=== PATIENT | female | born 1960 | race Caucasian/White ===

== ENCOUNTER 2020-11-24 13:23 | Emergency (ER) | payer MEDICARE, SELFPAY ==
[2020-11-24] VITALS (8 sets, daily range): BP systolic 151–199; BP diastolic 67–109; PULSE 64–85; RESP 14–21; TEMP 36.4; O2SAT 97–100; BMI 25.6
--- NOTE | 2020-11-24 13:55 | ECG_ITS ---
[facility] Test Date: 2020-11-24 Pat Name: Pippa Orantes Department: Room: Gender: Female Esthetician Permanent Makeup Artist: : 1960 Requested By: Isra Coulter Order Number: [id number] Dubose MD: Hannah Bell M.D. Measurements Intervals [place] Rate: 58 P: 38 MO: 161 QRS: 11 QRSD: 88 T: 41 QT: 416 QTc: 409 Interpretive Statements SINUS BRADYCARDIA Compared to ECG 07/24/2019 02:59:38 Sinus rhythm no longer present Electronically Signed On 11-24-2020 19:59:07 AIRLINE RADIO OPERATOR by Hannah Bell M.D. [id number]
--- NOTE | 2020-11-24 13:55 | XRR_ITS ---
PROCEDURE INFORMATION: Exam: XR Chest, 1 View Exam date and time: 11/24/2020 2:00 PM Age: 59 years old Clinical indication: Cough; Chest pain; Additional info: Left shoulder pain/chest pain TECHNIQUE: Imaging protocol: XR of the chest Views: 1 view. COMPARISON: CR Chest 1 [place] [id number] 07/23/2019 11:45 PM FINDINGS: Lungs: Unremarkable. No consolidation. Pleural space: Unremarkable. No pleural effusion. No pneumothorax. Heart/Mediastinum: Unremarkable. No cardiomegaly. Bones/joints: Unremarkable. XR/XR chest 1V portable [id number] IMPRESSION: No acute findings.
--- NOTE | 2020-11-24 13:55 | ED_ITS ---
HPI - Back Pain/Injury General: Chief Complaint: Back Pain/Injury Stated Complaint: LEFT SHOULDER PAIN Time Seen by Provider: 11/24/20 13:48 History of Present Illness: HPI Narrative: Patient is a 59-year-old female with past medical history of depression and chronic left shoulder pain who comes to the ER complaining of left shoulder pain radiating to her chest. She says it is worse with deep breaths and movement. She arrived by ambulance and was given Toradol in route which mildly helped her symptoms. Quality: sharp Associated symptoms: Deny abdominal pain, difficulty walking, fatigue or urinary urgency Review of Systems General: Reports: 10 or more systems reviewed and unremarkable except in HPI and below Const: Denies: fatigue Eyes: Denies: change in vision, blurry vision or eye redness ENMT: Denies: throat pain, swelling of lips/tongue, ear or mastoid pain or nasal congestion Card: Reports: other (left shoulder pain radiating to chest.); Denies: chest pain, palpitations, irregular heart rhythm, edema, dyspnea on exertion or orthopnea Resp: Denies: dyspnea, productive cough or non-productive cough GI: Denies: abdominal pain, diarrhea or GI cramping : Denies: flank pain, difficulty voiding, urinary frequency or urinary urgency Musc: Denies: neck pain, back pain, extremity pain, joint pain, joint redness, limited range of motion or muscle weakness Skin/Breast: Denies: rash, pruritus, erythema, skin pain or skin tenderness Neuro: Denies: headache(s), numbness in extremities, weakness in extremities, sensory changes, difficulty walking, dizziness, confusion or Slurred speech present Psych: Denies: anxiety or depression Endo: Denies: polyuria All/Imm: Denies: urticaria, throat swelling or tongue swelling Physical Exam Const: COMMON NORMALS: no acute distress, average body habitus, patient oriented x3, no limitations, healthy appearing, alert and well nourished GENERAL APPEARANCE: cooperative, comfortable, well kempt and well developed ORIENTATION/CONSCIOUSNESS: Yes awake, Yes oriented to person, Yes oriented to place and Yes oriented to time HENMT: COMMON NORMALS: normocephalic, external ears normal and Normal external nose present HEAD & SCALP: normal to inspection and normocephalic NOSE: Normal external nose present EXTERNAL EAR: Yes external ears normal MOUTH: Normal oral and palatal mucosa present THROAT: posterior oropharynx normal Eye: COMMON NORMALS: Equal, round and reactive pupils present and EOMs intact bilaterally GENERAL EYE: appearance normal, both eyes and all related structures PUPIL: Yes Equal, round and reactive pupils present Neck/C-Spine: COMMON NORMALS: full ROM, no lymphadenopathy, no meningeal signs and no JVD GENERAL: Yes normal visual inspection Lymph: LYMPHATIC: no lymphadenopathy noted Chest: COMMONS NORMALS: normal inspection of the chest and normal palpation of entire chest wall Resp: COMMON NORMALS: normal respiratory effort, No retractions, No use of accessory muscles, clear to auscultation bilaterally and percussion normal EFFORT & INSPECTION: Yes able to speak in complete sentences AUSCULTATION: clear to auscultation bilaterally PERCUSSION: percussion normal Cardio: COMMON NORMALS: no JVD, regular rate, regular rhythm, S1 normal heart sound present, S2 normal heart sound present and Peripheral pulses 2+ throughout RATE: regular rate RHYTHM: regular rhythm HEART SOUNDS: S1 normal heart sound present and S2 normal heart sound present PERIPHERAL PULSES: Peripheral pulses 2+ throughout GI: COMMON NORMALS: Normal to inspection, nondistended, normoactive bowel sounds present, Soft to palpation, non-tender and no masses INSPECTION: Yes normal to inspection PALPATION: Yes Soft to palpation : COMMON NORMALS: Yes no CVA tenderness BLADDER/KIDNEY EXAM: Yes no CVA tenderness Back/Pelvis: COMMON NORMALS: no CVA tenderness, thoracic and lumbar spine normal to inspection, no thoracic nor lumbar tenderness and thoraco-lumbar ROM normal Extremity: COMMON NORMALS: normal to inspection, full ROM, capillary refill normal, no joint enlargement and no pedal edema NARRATIVE EXTREMITY EXAM: Mild tenderness to shoulder muscles and rotator cuff. Ligaments intact. No bruising. Likely mild musculoskeletal pain. GENERAL: Yes normal exam except as noted Neuro: COMMON NORMALS: patient oriented x3, CN's II-XII intact bilaterally, moves all extremities, no focal motor deficits, no sensory deficits noted and gait normal SENSORIUM/ORIENTATION: Yes alert, Yes oriented to person, Yes oriented to place and Yes oriented to time MENINGEAL SIGNS: Yes no meningeal signs Psych: COMMON NORMALS: mental status grossly normal, Normal thought process present, cooperative, normal affect and speech normal APPEARANCE: Yes well kempt ATTITUDE: Yes calm SPEECH: Yes normal speech THOUGHT PROCESS: Normal thought process present Skin: COMMON NORMALS: no rashes or lesions noted GENERAL SKIN EXAM: no rashes or lesions noted Course Vital Signs: Vital signs: Vital Signs Temperature 97.5 F L 11/24/20 13:44 Pulse Rate 85 11/24/20 19:41 Respiratory Rate 17 11/24/20 19:41 Blood Pressure 151/81 11/24/20 19:41 Pulse Oximetry 98 11/24/20 19:41 MDM - Back Pain/Injury MDM Narrative: Medical decision making narrative: After she was nearing discharge for the chest pain she began to discuss depression and medication noncompliance and also follow-up noncompliance. I recommended placing a case management referral to help her get a primary care doctor and outpatient follow- up with a psychiatrist. She was also given clonidine to help control her blood pressure and will be discharged with lisinopril which she says she used to take before she ran out sometime ago. Discussed with her the risks of chronic hypertension of chest pain, heart attack, and stroke and she is aware of that and will take the medication and get refills. She is instructed to return to the ER if she has any worsening symptoms or suicidal thoughts Lab Data: Labs: Lab Results 11/24/20 11/24/20 11/24/20 Range/Units 14:24 14:24 14:24 WBC 4.4 (4.0-10.0) 10^3/ uL RBC 5.10 (4.1-5.3) 10^6/u L Hgb 16.2 H (11.5-15.3) g/dL Hct 48.7 H (37.0-47.0) % MCV 95.5 (81-99) fL MCH 31.8 (28.0-34.0) pg MCHC 33.3 (30.0-36.0) g/dL RDW 12.1 (12.1-15.1) % Plt Count 284 (130-400) 10^3/c mm MPV 11.3 H (7.4-10.4) fL Neut % (Auto) 59.7 % Lymph % (Auto) 28.1 % [place] % (Auto) 6.7 % Eos % (Auto) 3.8 % Baso % (Auto) 1.3 % Neut # (Auto) 2.67 (1.8-7.7) 10^3/u L Lymph # (Auto) 1.3 (0.8-4.8) 10^3/u L [place] # (Auto) 0.3 (0.2-0.9) 10^3/u L Eos # (Auto) 0.2 (0.0-0.8) 10^3/u L Baso # (Auto) 0.1 (0.0-0.1) 10^3/u L Nucleated RBC % (a uto) 0 % Nucleated RBCs # 0.0 /100WBC Sodium 139 (136-145) mmol/L Potassium 4.7 (3.5-5.1) mmol/L Chloride 103 (98-107) mmol/L Carbon Dioxide 26 (22-29) mmol/L Anion Gap 14.7 (5-19) BUN 16 (6-20) mg/dL Creatinine 0.9 (0.5-0.9) mg/dL GFR Calculation 64.1 L (90-130) mL/min Glucose 111 (65-115) mg/dL Calculated Osmolal ity 290 (285-295) mOsm/k g Calcium 9.6 (8.5-10.5) mg/dL Total Bilirubin 0.6 (0.15-1.2) mg/dL AST 18 (0-32) U/L ALT 13 (0-33) U/L Alkaline Phosphata se 76 (35-105) IU/L Troponin T Baselin e 7 (0-10) ng/L Troponin T 120 Min [place] (0-10) ng/L Delta Troponin T (0-10) ABS# Total Protein 6.6 (6.6-8.7) g/dL Albumin 3.9 (3.5-5.2) g/dL Globulin 2.7 (1.3-4.6) g/dL 11/24/20 Range/Units 16:06 WBC (4.0-10.0) 10^3/ uL RBC (4.1-5.3) 10^6/u L Hgb (11.5-15.3) g/dL Hct (37.0-47.0) % MCV (81-99) fL MCH (28.0-34.0) pg MCHC (30.0-36.0) g/dL RDW (12.1-15.1) % Plt Count (130-400) 10^3/c mm MPV (7.4-10.4) fL Neut % (Auto) % Lymph % (Auto) % [place] % (Auto) % Eos % (Auto) % Baso % (Auto) % Neut # (Auto) (1.8-7.7) 10^3/u L Lymph # (Auto) (0.8-4.8) 10^3/u L [place] # (Auto) (0.2-0.9) 10^3/u L Eos # (Auto) (0.0-0.8) 10^3/u L Baso # (Auto) (0.0-0.1) 10^3/u L Nucleated RBC % (a uto) % Nucleated RBCs # /100WBC Sodium (136-145) mmol/L Potassium (3.5-5.1) mmol/L Chloride (98-107) mmol/L Carbon Dioxide (22-29) mmol/L Anion Gap (5-19) BUN (6-20) mg/dL Creatinine (0.5-0.9) mg/dL GFR Calculation (90-130) mL/min Glucose (65-115) mg/dL Calculated Osmolal ity (285-295) mOsm/k g Calcium (8.5-10.5) mg/dL Total Bilirubin (0.15-1.2) mg/dL AST (0-32) U/L ALT (0-33) U/L Alkaline Phosphata se (35-105) IU/L Troponin T Baselin e (0-10) ng/L Troponin T 120 Min [place] 6.24 (0-10) ng/L Delta Troponin T -0.76 L (0-10) ABS# Total Protein (6.6-8.7) g/dL Albumin (3.5-5.2) g/dL Globulin (1.3-4.6) g/dL Discharge Plan Discharge Patient Disposition: Home Clinical Impression: Acute shoulder pain, Depression, History of uncontrolled hypertension, H/O medication noncompliance Condition: Stable Prescriptions: New lisinopril 20 mg tablet 20 mg PO DAILY Qty: 30 RF: 0 No Action Aspir-81 81 mg Tablet,Delayed Release (Dr/Ec) 81 mg PO QAM RF: 0 ibuprofen 200 mg Tablet 800 mg PO PRN RF: 0 Discharge Orders: Discharge ED (Routine); Ordered 11/24/20 Ordered By: Isra Coulter Referrals: SIMA Bates, YARIEL [Primary Care Provider] - Discharge Diet: Advance as tolerated Discharge Activity: Resume usual activity Patient Instructions: Depression (ED), Anxiety (ED) Activity Restrictions/Additional Instructions: You have likely injured your shoulder from lifting heavy rocks at home. Please take Tylenol at home for this and give it a few days. You also have depression. I have placed a case management referral to help you get an appointment with a primary care doctor and a psychiatrist. You must get refills from your primary care doctor for your blood pressure. If you do not your blood pressure will spike and you will be at risk of having a heart attack or a stroke and causing possible early . Return to the ER with worsening symptoms. Also please make sure to follow-up with the psychiatrist as he will help you get your medications straight and get you to feeling better. Return to the ER with any thoughts of hurting yourself Coding Level of Care Code ED Marketing Project Lead for Viktoria Fwconstanza Exam Comprehensive
[2020-11-24 14:42] LABS: Hematocrit 48.7 % (37.0-47.0); Hemoglobin 16.2 g/dL (11.5-15.3); Mean Corpuscular HGB Conc 33.3 g/dL (30.0-36.0); Mean Corpuscular Hemoglobin 31.8 pg (28.0-34.0); Mean Corpuscular Volume 95.5 fL (81-99); Mean Platelet Volume 11.3 fL (7.4-10.4); Nucleated Red Blood Cells % 0 %; Platelet Count 284 10^3/cmm (130-400); Red Cell Distribution Width 12.1 % (12.1-15.1); White Blood Count 4.4 10^3/uL (4.0-10.0)
[2020-11-24 15:14] LABS: Alanine Aminotransferase 13 U/L (0-33); Albumin Level 3.9 g/dL (3.5-5.2); Alkaline Phosphatase 76 IU/L (35-105); Anion Gap 14.7 (5-19); Aspartate Amino Transferase 18 U/L (0-32); Blood Urea Nitrogen 16 mg/dL (6-20); Calcium 9.6 mg/dL (8.5-10.5); Carbon Dioxide 26 mmol/L (22-29); Chloride 103 mmol/L (98-107); Creatinine Clr Calc Pharmacy 58.9275; Globulin 2.7 g/dL (1.3-4.6); Glomerular Filtration Rate 64.1 mL/min (90-130); Glucose 111 mg/dL (65-115); Osmolality Calculated 290 mOsm/kg (285-295); Potassium 4.7 mmol/L (3.5-5.1); Sodium 139 mmol/L (136-145); Total Bilirubin 0.6 mg/dL (0.15-1.2); Total Protein 6.6 g/dL (6.6-8.7)
[2020-11-24 15:18] LABS: Troponin(5th) Baseline 7 ng/L (0-10)
--- NOTE | 2020-11-24 16:17 | PC.PHAR ---
pt states she is suppose to be taking lisinopril 20mg daily but has been out of this medication for 3 months or so
[2020-11-24 16:26] LABS: Basophils # 0.1 10^3/uL (0.0-0.1); Basophils % 1.3 %; Eosinophils # 0.2 10^3/uL (0.0-0.8); Eosinophils % 3.8 %; Lymphocytes # 1.3 10^3/uL (0.8-4.8); Lymphocytes % 28.1 %; Monocytes # 0.3 10^3/uL (0.2-0.9); Monocytes % 6.7 %; Neutrophils # 2.67 10^3/uL (1.8-7.7); Neutrophils % 59.7 %
[2020-11-24 16:55] LABS: Troponin 5 2HR 6.24 ng/L (0-10)
[2020-11-24 16:56] LABS: Troponin 5 2HR Delta -0.76 ABS# (0-10)
[2020-11-24] MEDS: LORazepam 1 mg Tablet PO (16:59)
[2020-11-24] MEDS: cloNIDine 0.1 mg Tablet 0.2 MG PO (18:39)
[2020-11-24] MEDS: hyDROXYzine 25 mg Capsule 50 MG PO (18:50)
--- NOTE | 2020-11-25 10:36 | DCPLANNER ---
environmental services project manager had message to speak with patient about a primary care appointment and follow up at [facility]. environmental services project manager called [phone], case reviewer was unable to speak with patient at this time. A message stated that this number in no longer in service.
== END 2020-11-24 19:41 | disposition home or self-care (01) ==
PROVIDERS: Emergency Provider Family Medicine; PCP Nurse Practitioner Family
DX: M25.512 Pain in left shoulder (principal); F32.9 Major depressive disorder, single episode, unspecified; I10 Essential (primary) hypertension; Z91.14 Patient's other noncompliance with medication regimen; Z79.82 Long term (current) use of aspirin
CPT/HCPCS: 12345; 36415; 71045; 80053; 84484; 85025; 93005; 99283; 99284

== ENCOUNTER 2021-01-11 19:47 | Observation (INO) | payer MEDICARE, SELFPAY ==
[2021-01-11 19:50] VITALS: BP 180/103; PULSE 89; RESP 18; TEMP 36.7; O2SAT 97; BMI 27.4
--- NOTE | 2021-01-11 20:12 | ED_ITS ---
HPI - Psych General: Chief Complaint: Psychiatric Symptoms Stated Complaint: psych eval SI Time Seen by Provider: 01/11/21 20:03 Source: patient Mode of arrival: ambulatory Limitations: no limitations History of Present Illness: HPI Narrative: 60-year-old female who states she has been having suicidal thoughts and depression over the last week to 2 weeks with increased tonight. She states she has no specific plan but states she is feels like she cannot take anymore. Patient is tearful in the room. She denies any worsening improving factors. She states she supposed be on psychiatric medicines but has not been taking any for months. MD complaint: suicidal ideation Associated symptoms: Reports depression and suicidal ideation Review of Systems Const: Denies: fever(s), chills, body aches or change in appetite Eyes: Denies: blurry vision or eye discomfort ENMT: Denies: throat pain or dental pain Card: Denies: chest pain Resp: Denies: dyspnea GI: Denies: abdominal pain, nausea, vomiting or diarrhea : Denies: dysuria Musc: Denies: neck pain or back pain Skin/Breast: Denies: rash Neuro: Denies: headache(s) Psych: Reports: depression and suicidal ideation Chandan/Lymph: Denies: easy bruising All/Imm: Denies: urticaria Physical Exam Const: COMMON NORMALS: no acute distress, patient oriented x3 and healthy appearing HENMT: COMMON NORMALS: normocephalic and atraumatic HEAD & SCALP: normocephalic and atraumatic Eye: COMMON NORMALS: Equal, round and reactive pupils present and EOMs intact bilaterally PUPIL: Yes Equal, round and reactive pupils present Neck/C-Spine: COMMON NORMALS: full ROM and supple Chest: COMMONS NORMALS: normal inspection of the chest and normal palpation of entire chest wall Resp: COMMON NORMALS: normal respiratory effort, No retractions, No use of accessory muscles and clear to auscultation bilaterally AUSCULTATION: clear to auscultation bilaterally Cardio: COMMON NORMALS: regular rate, regular rhythm and No murmurs present (Cardio) RATE: regular rate RHYTHM: regular rhythm GI: COMMON NORMALS: Normal to inspection, nondistended, normoactive bowel sounds present, Soft to palpation, non-tender and no masses PALPATION: Yes Soft to palpation Extremity: COMMON NORMALS: normal to inspection and full ROM Neuro: COMMON NORMALS: patient oriented x3, moves all extremities and no focal motor deficits Psych: COMMON NORMALS: mental status grossly normal, Normal thought process present and cooperative THOUGHT PROCESS: Normal thought process present THOUGHT CONTENT: Yes Suicidality present Skin: COMMON NORMALS: no rashes or lesions noted and no wounds GENERAL SKIN EXAM: no rashes or lesions noted MDM - Psych MDM Narrative: Medical decision making narrative: Patient presents here with suicidal ideations and is voluntarily wanting to be admitted. Patient is stable for admission blood work is all normal. I spoke to Dr. Noel and will admit. Lab Data: Labs: Lab Results 01/11/21 01/11/21 01/11/21 Range/Units 20:11 20:35 20:35 WBC 7.4 (4.0-10.0) 10^3/ uL RBC 4.61 (4.1-5.3) 10^6/u L Hgb 14.7 (11.5-15.3) g/dL Hct 45.5 (37.0-47.0) % MCV 98.7 (81-99) fL MCH 31.9 (28.0-34.0) pg MCHC 32.3 (30.0-36.0) g/dL RDW 12.1 (12.1-15.1) % Plt Count 244 (130-400) 10^3/c mm MPV 11.6 H (7.4-10.4) fL Neut % (Auto) 66.2 % Lymph % (Auto) 26.4 % [place] % (Auto) 4.5 % Eos % (Auto) 1.8 % Baso % (Auto) 0.8 % Neut # (Auto) 4.88 (1.8-7.7) 10^3/u L Lymph # (Auto) 1.9 (0.8-4.8) 10^3/u L [place] # (Auto) 0.3 (0.2-0.9) 10^3/u L Eos # (Auto) 0.1 (0.0-0.8) 10^3/u L Baso # (Auto) 0.1 (0.0-0.1) 10^3/u L Nucleated RBC % (a uto) 0 % Nucleated RBCs # 0.0 /100WBC Sodium 137 (136-145) mmol/L Potassium 4.1 (3.5-5.1) mmol/L Chloride 105 (98-107) mmol/L Carbon Dioxide 24 (22-29) mmol/L Anion Gap 12.1 (5-19) BUN 11 (8-23) mg/dL Creatinine 0.8 (0.5-0.9) mg/dL GFR Calculation 73.2 L (90-130) mL/min Glucose 89 (65-115) mg/dL Calculated Osmolal ity 283 L (285-295) mOsm/k g Calcium 8.6 (8.5-10.5) mg/dL Total Bilirubin 0.3 (0.15-1.2) mg/dL AST 17 (0-32) U/L ALT 12 (0-33) U/L Alkaline Phosphata se 69 (35-105) IU/L Total Protein 6.6 (6.6-8.7) g/dL Albumin 3.8 (3.5-5.2) g/dL Globulin 2.8 (1.3-4.6) g/dL Salicylates < 0.3 L (3-10) mg/dL Urine Opiates Scre en Negative (Negative) ng/mL Acetaminophen < 5.0 L (10-30) ug/mL Ur Barbiturates Sc reen Negative (Negative) ng/mL Ur Phencyclidine S crn Negative (Negative) ng/mL Ur Amphetamines Sc reen Negative (Negative) ng/mL U Benzodiazepines Scrn Negative (Negative) ng/mL Urine Cocaine Scre en Negative (Negative) ng/mL U Marijuana (THC) Screen Negative (Negative) ng/mL Ethyl Alcohol (0-10) mg/dL 01/11/21 Range/Units 20:35 WBC (4.0-10.0) 10^3/ uL RBC (4.1-5.3) 10^6/u L Hgb (11.5-15.3) g/dL Hct (37.0-47.0) % MCV (81-99) fL MCH (28.0-34.0) pg MCHC (30.0-36.0) g/dL RDW (12.1-15.1) % Plt Count (130-400) 10^3/c mm MPV (7.4-10.4) fL Neut % (Auto) % Lymph % (Auto) % [place] % (Auto) % Eos % (Auto) % Baso % (Auto) % Neut # (Auto) (1.8-7.7) 10^3/u L Lymph # (Auto) (0.8-4.8) 10^3/u L [place] # (Auto) (0.2-0.9) 10^3/u L Eos # (Auto) (0.0-0.8) 10^3/u L Baso # (Auto) (0.0-0.1) 10^3/u L Nucleated RBC % (a uto) % Nucleated RBCs # /100WBC Sodium (136-145) mmol/L Potassium (3.5-5.1) mmol/L Chloride (98-107) mmol/L Carbon Dioxide (22-29) mmol/L Anion Gap (5-19) BUN (8-23) mg/dL Creatinine (0.5-0.9) mg/dL GFR Calculation (90-130) mL/min Glucose (65-115) mg/dL Calculated Osmolal ity (285-295) mOsm/k g Calcium (8.5-10.5) mg/dL Total Bilirubin (0.15-1.2) mg/dL AST (0-32) U/L ALT (0-33) U/L Alkaline Phosphata se (35-105) IU/L Total Protein (6.6-8.7) g/dL Albumin (3.5-5.2) g/dL Globulin (1.3-4.6) g/dL Salicylates (3-10) mg/dL Urine Opiates Scre en (Negative) ng/mL Acetaminophen (10-30) ug/mL Ur Barbiturates Sc reen (Negative) ng/mL Ur Phencyclidine S crn (Negative) ng/mL Ur Amphetamines Sc reen (Negative) ng/mL U Benzodiazepines Scrn (Negative) ng/mL Urine Cocaine Scre en (Negative) ng/mL U Marijuana (THC) Screen (Negative) ng/mL Ethyl Alcohol < 10 (0-10) mg/dL Discharge Plan Discharge Patient Disposition: Admitted As Inpatient Admit Provider: Chilo Noel Clinical Impression: Suicidal ideation Condition: Stable Coding Level of Care Code ED Stainless Steel Finisher for Chg Fwd Exam Comprehensive
[2021-01-11] MEDS: LORazepam 2 mg Tablet PO (20:16)
[2021-01-11 20:34] LABS: Amphetamines Screen Urine Negative (Negative); Barbiturates Screen Urine Negative (Negative); Benzodiazepines Screen Urine Negative (Negative); Cocaine Screen Urine Negative (Negative); Opiate Screen Urine Negative (Negative); PCP Screen Urine Negative (Negative); THC Screen Urine Negative (Negative)
[2021-01-11 20:42] LABS: Basophils # 0.1 10^3/uL (0.0-0.1); Basophils % 0.8 %; Eosinophils # 0.1 10^3/uL (0.0-0.8); Eosinophils % 1.8 %; Hematocrit 45.5 % (37.0-47.0); Hemoglobin 14.7 g/dL (11.5-15.3); Lymphocytes # 1.9 10^3/uL (0.8-4.8); Lymphocytes % 26.4 %; Mean Corpuscular HGB Conc 32.3 g/dL (30.0-36.0); Mean Corpuscular Hemoglobin 31.9 pg (28.0-34.0); Mean Corpuscular Volume 98.7 fL (81-99); Mean Platelet Volume 11.6 fL (7.4-10.4); Monocytes # 0.3 10^3/uL (0.2-0.9); Monocytes % 4.5 %; Neutrophils # 4.88 10^3/uL (1.8-7.7); Neutrophils % 66.2 %; Nucleated Red Blood Cells % 0 %; Platelet Count 244 10^3/cmm (130-400); Red Blood Count 4.61 10^6/uL (4.1-5.3); Red Cell Distribution Width 12.1 % (12.1-15.1); White Blood Count 7.4 10^3/uL (4.0-10.0)
[2021-01-11 20:58] LABS: Alanine Aminotransferase 12 U/L (0-33); Albumin Level 3.8 g/dL (3.5-5.2); Alkaline Phosphatase 69 IU/L (35-105); Anion Gap 12.1 (5-19); Aspartate Amino Transferase 17 U/L (0-32); Blood Urea Nitrogen 11 mg/dL (8-23); Calcium 8.6 mg/dL (8.5-10.5); Carbon Dioxide 24 mmol/L (22-29); Chloride 105 mmol/L (98-107); Globulin 2.8 g/dL (1.3-4.6); Glomerular Filtration Rate 73.2 mL/min (90-130); Glucose 89 mg/dL (65-115); Osmolality Calculated 283 mOsm/kg (285-295); Potassium 4.1 mmol/L (3.5-5.1); Sodium 137 mmol/L (136-145); Total Bilirubin 0.3 mg/dL (0.15-1.2); Total Protein 6.6 g/dL (6.6-8.7)
[2021-01-11 21:01] LABS: Acetaminophen < 5.0 ug/mL (10-30); Alcohol Level < 10 mg/dL (0-10); Salicylate < 0.3 mg/dL (3-10)
[2021-01-11 21:50] VITALS: BP 143/86; PULSE 76; RESP 17; O2SAT 97
[2021-01-11 21:58] VITALS: BP 143/86; PULSE 76; RESP 17; TEMP 36.4; O2SAT 97
[2021-01-11 22:23] VITALS: BP 138/86; PULSE 86; RESP 17; TEMP 36.7; O2SAT 93
[2021-01-12 06:37] VITALS: BP 130/82; PULSE 61; RESP 18; TEMP 36.5; O2SAT 99
--- NOTE | 2021-01-12 08:50 | PC.NURSE ---
INFLUENZA VACCINE 1 SINGLE DOSE (0.5 ML) GIVEN IM IN RIGHT DELTOID. PT EDUCATED ON MED GIVEN & PT VERBALIZED UNDERSTANDING. WILL CONT TO MONITOR INJECTION SITE FOR ANY REDNESS, SWELLING, OR IRRITATION. LOT [id number] EXP 05/05/21
[2021-01-12 12:38] VITALS: BP 130/82; PULSE 61; RESP 18; TEMP 36.5; O2SAT 99
--- NOTE | 2021-01-12 12:39 | PM.SDS ---
Short Stay Summary Providers Date of Admit/Discharge: 01/16/21 Attending Provider: Chilo Noel MD Primary Care Provider: YARIEL Khan Chief Complaint: psych eval SI HPI History of Present Illness Pippa Orantes is a 60 year old female who presented to the emergency department with the following report: Chief Complaint: Psychiatric Symptoms Stated Complaint: psych eval SI Time Seen by Provider: 01/11/21 20:03 Source: patient Mode of arrival: ambulatory Limitations: no limitations History of Present Illness: HPI Narrative: 60-year-old female who states she has been having suicidal thoughts and depression over the last week to 2 weeks with increased tonight. She states she has no specific plan but states she is feels like she cannot take anymore. Patient is tearful in the room. She denies any worsening improving factors. She states she supposed be on psychiatric medicines but has not been taking any for months. MD complaint: suicidal ideation Associated symptoms: Reports depression and suicidal ideation. She was admitted to the neuropsychiatric unit for definitive treatment of those issues. This morning however it came to our attention that this admission was likely based on other issues. Yesterday she and her significant other who we also unwittingly admitted were escorted out of [facility] the local homeless jail because he would not leave. They noted that they had nowhere else to go they were not allowed to be there because according to [facility] rules want to leave you cannot return for a year. So the presentation last night was predicated on having no else to go. She is not denying this issue. She has not been on her medication is made no attempts to rectify the situation. We agreed that we would restart her Prozac after discussion of the risks, benefits and alternatives and she understood and agreed to proceed as documented in this note. We also agreed to assist them in getting to a jail which is what they wanted but the closest one that they could be assured entry is in [facility]. She endorses a history of schizophrenia but denies current psychosis and has not been hospital, on medication, or in treatment outpatient for some time. We reviewed her last inpatient stay here and excerpt is included below for some context. And also identified that she is struggling with homelessness for some time. Her significant other struggles heavily with alcohol but she denies alcohol or any other major addictions. Mental status examination: This is an overweight white female with hospital scrubs on with limited grooming and eye contact. No abnormal movements except for mild psychomotor retardation. Mostly cooperative with exam in no acute distress. Speech was decreased rate and volume. Mood described as okay, affect subdued. Thought process organized. Thought content: Patient denied suicidal or homicidal ideation, there were no delusions reported or noted, she denied any auditory or visual hallucinations. Attention and concentration appeared intact and memory was reliable but none were formally tested. She is alert and oriented x3. Insight and judgment are limited and impulse control is fair. Assessment/plan: This is a 60-year-old white female with a long history of mental health issues but with limited recent treatment who presents to the [facility] with her significant other under the guise of suicidality but in reality she was malingering, homeless in need of a place to stay. . Continue current medication. 2. Continue every 15 minute checks for safety. 3. Encourage individual, group and milieu therapies. 4. We will discharge to jail in [facility]. Per her last [facility] inpatient psychiatric evaluation: History of Present Illness Date of Service: Apr 21, 2018 Chief Complaint: Depression HPI: Ms. Orantes is a 57-year-old female who is well known to our behavior health services who was admitted from [facility] ED complaint of depression. As she presents today she appears severely depressed with notable psychomotor retardation difficulty with focus or concentration, depressed mood, anhedonia, hopelessness, intermittent suicidal ideation, and difficulty with memory. Patient reports that since her last hospitalization in October 2017, she has not had a consistent and stable place to live, her sister , she is recently staying with her brother that has not been working out, and she's been off her medications now for several months. She denies any alcohol or any other substance use. Allergies: Coded Allergies: AZITHROMYCIN (Verified Allergy, Unknown, 09/18/08) CEFAZOLIN SODIUM (Verified Allergy, Unknown, 09/18/08) CLARITHROMYCIN (Verified Allergy, Unknown, 09/18/08) ERYTHROMYCIN BASE (Verified Allergy, Unknown, 09/18/08) HYDROMORPHONE (Verified Allergy, Unknown, SEIZURES, 09/18/08) MECLIZINE (Verified Allergy, Unknown, 09/18/08) MEPERIDINE (Verified Allergy, Unknown, SEIZURES, 09/18/08) MORPHINE (Verified Allergy, Unknown, SEIZURES, 09/18/08) QUINOLONES (Verified Allergy, Unknown, 09/18/08) PREDNISONE (Verified Adverse Reaction, Unknown, 09/18/08) SULFONYLUREAS (Verified Adverse Reaction, Unknown, 09/18/08) TRAMADOL (Verified Adverse Reaction, Unknown, 09/18/08) Uncoded Allergies: UNKNOWN ANTIDEPRESSANT (Adverse Reaction, Unknown, 12/18/06) UNKNOWN BP MED (Adverse Reaction, Unknown, 12/18/06) Active Meds: Current Hospital Medications: Medications (Trade) Dose Ordered Sig/Hanh Route PRN Reason Start Time Stop Time Status Last Admin Dose Admin Lorazepam (Ativan Tab) 0.5 mg Q4H PRN PO FOR MILD ANXIETY 04/20/18 19:15 Lorazepam (Ativan Tab) 1 mg Q4H PRN PO FOR MODERATE ANXIETY 04/20/18 19:15 Lorazepam (Ativan Tab) 2 mg Q4H PRN PO FOR SEVERE ANXIETY 04/20/18 19:15 04/20/18 21:48 Lorazepam (Ativan Inj) 2 mg Q4H PRN IM For Severe Aggression 04/20/18 19:15 Haloperidol Lactate (Haldol Inj) 5 mg Q4H PRN IM Severe Aggression 04/20/18 19:15 Diphenhydramine HCl (Benadryl Inj) 50 mg ONCE PRN IV Severe Extrapyramidal Symptoms 04/20/18 19:15 Benztropine Mesylate (Cogentin Tab) 1 mg BID PRN PO Mild Extrapyramidal symptoms 04/20/18 19:15 Benztropine Mesylate (Cogentin Inj) 1 mg ONCE PRN IM Severe Extrapyramidal Symptom 04/20/18 19:15 Acetaminophen (Tylenol Tab) 650 mg Q4H PRN PO FOR MILD PAIN 04/20/18 19:15 Trazodone HCl (Trazodone) 50 mg BEDTIME PRN PO FOR SLEEP 04/20/18 19:15 Nicotine (Nicoderm Patch) 21 mg DAILY PRN TD FOR WITHDRAWAL 04/20/18 19:15 Nicotine Polacrilex (Nicotine Gum) 2 mg Q2H PRN PO Withdrawal 04/20/18 19:15 Haloperidol (Haldol Tab) 5 mg Q4H PRN PO For agitation 04/20/18 19:15 Lorazepam (Ativan Tab) 2 mg Q4H PRN PO FOR AGITATION 04/20/18 19:15 Lisinopril (Prinivil) 5 mg DAILY PO 04/21/18 10:00 Past Medical History Past Medical History: PAST PSYCHIATRIC HISTORY: -Previous diagnosis of major depressive disorder recurrent, anxiety -Last hospitalized on the [facility] 10/20/2017 PAST FAMILY PSYCHIATRIC HISTORY: -Noncontributory SOCIAL HISTORY: -She is currently homeless PAST MEDICAL HISTORY: -Hypertension Home Meds/Allergies Home Medications and Allergies Home Medications Medication Instructions Recorded Confirmed Type aspirin [Aspir-81] 81 mg PO DAILY 01/15/21 01/15/21 History lisinopril 20 mg PO DAILY 01/16/21 01/16/21 History tamsulosin 0.4 mg PO DAILY 01/16/21 01/16/21 History Allergies Allergy/AdvReac Type Severity Reaction Status Date / Time hydromorphone [From Dilaudid] Allergy Mild ADR-Halluci Verified 01/15/21 18:22 nating morphine Allergy Mild ALGY-Anaphy Verified 01/15/21 18:22 laxis Vitals/I&O/Wt Last Vital Signs Temp 97.7 F 01/12/21 12:38 Pulse 61 01/12/21 12:38 Resp 18 01/12/21 12:38 BP 130/82 01/12/21 12:38 Pulse Ox 99 01/12/21 12:38 Weight last 48 hrs Weight 68.039 kg Hospital Course Admission Diagnoses Depression, malingering, history of schizophrenia, Hospital Course Pippa presented to the emergency department endorsing depression, history of schizophrenia and suicidality. She was admitted to the neuropsychiatric unit for definitive treatment of those issues. On the unit however it was discovered that she was malingering along with her significant other secondary to being homeless, not having a place to stay and being removed from the local homeless jail secondary to not having been out of the facility for long enough before attempting to return. We assisted her by restarting her Prozac which she had been off for some time and connected her with a homeless jail to assist in that knee. She was able to contract for safety prior to discharge. During the hospitalization, patient had routine laboratory studies which were within normal limits except for few outliers. Additionally there was a general medical evaluation which was also within normal limits and revealed no new acute processes. Discharge Summary At the time of discharge, patient was absent psychosis or lethality. Mood and anxiety were well managed. Patient endorsed a plan follow-up with the aftercare recommendations of the treatment team. Patient was evaluated and deemed to be absent credible lethality, and had achieved the maximum benefit from an inpatient hospitalization, so was discharged. Diagnoses at Discharge Discharge Diagnosis (1) Depression: Status: Acute (2) Malingering: Status: Acute (3) Homeless: Status: Acute (4) Schizophrenia: Status: Acute (5) Suicidal ideation: Status: Resolved Discharge Plan Discharge Patient Disposition: Home Condition: Stable Prescriptions: New fluoxetine 20 mg Capsule 20 mg PO DAILY 30 Days Qty: 30 RF: 1 No Action aspirin [Aspir-81] 81 mg Tablet,Delayed Release (Dr/Ec) 81 mg PO DAILY RF: 0 lisinopril 20 mg Tablet 20 mg PO DAILY RF: 0 tamsulosin 0.4 mg Capsule 0.4 mg PO DAILY RF: 0 Discharge Orders: Discharge Order (Routine); Ordered 01/12/21 Ordered By: Chilo Noel Referrals: [facility] [Other] ([address] [place] [address] Please follow up for your walk in assessment within 3-5 days of discharge. No call-ahead is necessary, just walk in and be seen. Bring your I.D., social security card or number, and insurance information We accept Medicare, Medicaid, numerous private insurance providers and accept self-pay on a sliding scale for those who qualify. ) [facility] [Other] ([address], [address] [address] ) [facility] [Other] (At discharge you will be sent to [facility] in [place], they will help coordinate housing resources for you. If you are at risk of becoming homeless or currently without a safe, stable place to stay, please call [phone] or visit us at [facility]-[address] [place] [id number]. One of the [facility] service coordinators will meet with you to help identify resources and options that may meet your individual needs. Hours of Operation: Monday: 9am ? 5pm Monday: 9am ? noon and 1pm ? 5pm Monday: 9am ? 5pm : 10am ? 5pm Matt: 9am ? 5pm* *[facility] is closed the first Monday of every month ) [facility] [Outside] SIMA Bates, [employer]KER [Primary Care Provider] - Discharge Diet: Regular Discharge Activity: Resume usual activity Patient Instructions: Fluoxetine (By mouth), Suicide Prevention for Adults (GEN) Attestations Medical Necessity Statement*: Inpatient hospitalization is not medically necessary or the clinically appropriate intervention at this time. We will discharge to home with access to medication and advise to engage in outpatient services. Time Spent in Patient Care*: greater than 30 min Specific Discharge Activities: Specific discharge activities: educating patient, discussing with watch case polisher/social workers/dc planners, documenting/other paperwork and evaluating patient/reviewing data Status at Discharge: Cognitive status at discharge: cognitively intact, Behavioral status at discharge: cooperative, Functional status at discharge: independent ambulation Overall status at discharge: patient is back to baseline Quality Metrics Clinical Quality Measures: During this hospital stay, did patient experience: None Coding Level of Care Code Acute Dairy Manager for Viktoria Fwd Diagnoses Depression F32.9 Malingering Z76.5 Homeless Z59.0 Schizophrenia F20.9 Suicidal ideation R45.851
[2021-01-12] MEDS: fluoxetine 20 mg Capsule PO (12:47)
== END 2021-01-12 14:21 | disposition home or self-care (01) ==
LOC: ER 21:08 → NP 01-12 10:34
PROVIDERS: Admitting Provider Psychiatry & Neurology Psychiatry; Emergency Provider Emergency Medicine; PCP Nurse Practitioner Family; Visit Provider Psychiatry & Neurology Psychiatry
DX: R45.851 Suicidal ideations (principal); F20.9 Schizophrenia, unspecified; Z59.0 Homelessness; Z76.5 Malingerer [conscious simulation]; F32.9 Major depressive disorder, single episode, unspecified
CPT/HCPCS: 36415; 80053; 80306; 80307; 85025; 90471; 90686; 99285; G0378

== ENCOUNTER 2021-01-15 18:12 | Inpatient (IN) | payer MEDICARE, SELFPAY ==
[2021-01-15 18:18] VITALS: BP 172/129; PULSE 76; RESP 16; TEMP 36.9; O2SAT 98; BMI 28.3
[2021-01-15 18:37] VITALS: RESP 15
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
[2021-01-15] MEDS: ziprasidone 20 mg/mL SDV 10 MG IM (19:22)
[2021-01-15] MEDS: haloperidol inj 5 mg/mL INJ 1 mL IM (19:23)
[2021-01-15 19:38] LABS: Add Urine Microscopic? NO
[2021-01-15 19:44] LABS: Basophils % 0.7 %; Eosinophils # 0.1 10^3/uL (0.0-0.8); Hematocrit 48.6 % (37.0-47.0); Hemoglobin 15.7 g/dL (11.5-15.3); Lymphocytes # 2.2 10^3/uL (0.8-4.8); Lymphocytes % 35.4 %; Mean Corpuscular HGB Conc 32.3 g/dL (30.0-36.0); Mean Corpuscular Hemoglobin 31.5 pg (28.0-34.0); Mean Corpuscular Volume 97.6 fL (81-99); Mean Platelet Volume 11.7 fL (7.4-10.4); Monocytes # 0.5 10^3/uL (0.2-0.9); Monocytes % 8.3 %; Neutrophils # 3.35 10^3/uL (1.8-7.7); Neutrophils % 54.4 %; Nucleated Red Blood Cells % 0 %; Platelet Count 276 10^3/cmm (130-400); Red Blood Count 4.98 10^6/uL (4.1-5.3); Red Cell Distribution Width 12.3 % (12.1-15.1); White Blood Count 6.2 10^3/uL (4.0-10.0)
[2021-01-15 19:49] LABS: Bilirubin Urine Neg (Negative); Blood Urine Neg (Negative); Glucose Urine UA Norm (Normal); Ketones Urine Negative (Negative); Leukocyte Esterase Urine Negative (Negative); Nitrate Urine Negative (Negative); Protein Urine Neg (Negative); Specific Gravity, Urine 1.025 (1.005-1.030); Urine Appearance Clear (CLEAR); Urine Color Yellow (Yellow); Urobilinogen Urine 4 mg/dL (Negative); pH Urine 5 (5-7)
[2021-01-15 19:56] LABS: Amphetamines Screen Urine Negative (Negative); Barbiturates Screen Urine Negative (Negative); Benzodiazepines Screen Urine Positive (Negative); Cocaine Screen Urine Negative (Negative); Opiate Screen Urine Negative (Negative); PCP Screen Urine Negative (Negative); THC Screen Urine Negative (Negative)
[2021-01-15 20:01] LABS: Alanine Aminotransferase 17 U/L (0-33); Alkaline Phosphatase 70 IU/L (35-105); Anion Gap 11.9 (5-19); Aspartate Amino Transferase 26 U/L (0-32); Blood Urea Nitrogen 23 mg/dL (8-23); Calcium 8.8 mg/dL (8.5-10.5); Carbon Dioxide 28 mmol/L (22-29); Chloride 103 mmol/L (98-107); Globulin 2.9 g/dL (1.3-4.6); Glomerular Filtration Rate 73.2 mL/min (90-130); Glucose 99 mg/dL (65-115); Osmolality Calculated 292 mOsm/kg (285-295); Potassium 3.9 mmol/L (3.5-5.1); Sodium 139 mmol/L (136-145); Total Bilirubin 0.3 mg/dL (0.15-1.2); Total Protein 6.9 g/dL (6.6-8.7)
[2021-01-15 20:04] LABS: Acetaminophen < 5.0 ug/mL (10-30); Alcohol Level < 10 mg/dL (0-10); Salicylate < 0.3 mg/dL (3-10)
--- NOTE | 2021-01-15 20:51 | CTR_ITS ---
PROCEDURE INFORMATION: Exam: CT Head Without Contrast Exam date and time: 01/15/2021 8:53 PM Age: 60 years old Clinical indication: Altered mental status/memory loss; Confusion or disorientation; Additional info: AMS TECHNIQUE: Imaging protocol: Computed tomography of the head without contrast. Radiation optimization: All CT scans at this facility use at least one of these dose optimization techniques: automated exposure control; mA and/or kV adjustment per patient size (includes targeted exams where dose is matched to clinical indication); or iterative reconstruction. COMPARISON: CT head wo con* [id number] 05/09/2019 9:36 AM RADIATION DOSE METRICS: Total DLP (mGy-cm): 686.11 FINDINGS: Brain: Mild cortical volume loss. Moderate hypodensities in supratentorial periventricular and subcortical white matter, consistent with microangiopathy. No intracranial hemorrhage. New lacunar infarct in the mid right jose, of near CSF density and likely chronic. Cerebral ventricles: No ventriculomegaly. Bones/joints: Unremarkable. No acute fracture. Paranasal sinuses: Visualized sinuses are unremarkable. No fluid levels. Mastoid air cells: Visualized mastoid air cells are well aerated. Vasculature: No hyperdense artery. Soft tissues: Unremarkable. CT/CT head wo con* [id number] IMPRESSION: 1. No acute intracranial abnormality. 2. 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 Radiation Dose CTDIVOL = (mGy): DLP = 686.11 (mGy-cm)
[2021-01-15 21:41] VITALS: BP 157/76; PULSE 63; RESP 16; TEMP 36.8; O2SAT 96
[2021-01-15 21:52] VITALS: BP 131/79; PULSE 68; RESP 18; TEMP 36.7; O2SAT 95
[2021-01-15 22:00] VITALS: BP 131/79; PULSE 68; RESP 18; TEMP 36.7; O2SAT 95
[2021-01-16 06:00] VITALS: BP 168/103; PULSE 88; RESP 17; TEMP 36.8; O2SAT 98
[2021-01-16] MEDS: hyDROXYzine 25 mg Capsule 50 MG PO ×3 (09:05→20:27)
[2021-01-16] MEDS: acetaminophen 325 mg Tablet 650 MG PO (09:05)
[2021-01-16] MEDS: lisinopril 20 mg Tablet PO (09:05)
[2021-01-16] MEDS: tamsulosin 0.4 mg Capsule PO (09:08)
[2021-01-16] MEDS: aspirin 81 mg EC Tablet PO (09:08)
[2021-01-16] MEDS: fluoxetine 20 mg Capsule PO (09:09)
--- NOTE | 2021-01-16 12:09 | PM.NHP ---
Providers/Chief Complaint Admitting Physician: Shiloh Moreau DO Chief Complaint: anxiety HPI NPU History of Present Illness Pippa Orantes is a 60 year old female with history of depression and anxiety and recent discharge from this unit 4 days ago with complaint of depression and suicidal ideation although was quickly discharged secondary to concerns for malingering after she had recently been asked to leave the homeless group home presented to the emergency department after being picked up by her niece in [place] with a complaint of not knowing how she got to [place]. Patient continues to report amnesia for multiple events as well as stating that she does not know today's date or what year it is although patient makes no attempts to think or guess but simply states, I do not know. Patient does not recall how long this is been going on. When asked about her significant other patient seems to recall his name is Dorian but states that she does not know his phone number and does not recall the last time she had spoke to him. She denies any head injury and denies any weakness or numbness in any extremities or any history of stroke or recent strokes. Patient continues to report depressive symptoms but denies any suicidal ideation. She does not recall how long her depressive symptoms have been going on but states that it causes her significant issues. She also reports significant anxiety symptoms and is requesting medication for her anxiety. Patient denies any recent stressors other than stating that she cannot recall recent events. She denies any auditory or visual hallucinations, denies any delusions. Patient states that she does not recall what medications that she is taking or if she has been compliant with her medications. Psychiatric review of systems is otherwise negative. Review of Systems General: Reports: 10 or more systems reviewed and unremarkable except in HPI and below Meds NPU Home Medications Medication Instructions Recorded Confirmed Last Taken Type fluoxetine 20 mg PO DAILY 30 Days #30 cap 01/12/21 01/15/21 Unknown Rx aspirin [Aspir-81] 81 mg PO DAILY 01/15/21 01/15/21 Unknown History lisinopril 20 mg PO DAILY 01/16/21 01/16/21 Unknown History tamsulosin 0.4 mg PO DAILY 01/16/21 01/16/21 Unknown History Allergies Allergy/AdvReac Type Severity Reaction Status Date / Time hydromorphone [From Dilaudid] Allergy Mild ADR-Halluci Verified 01/15/21 18:22 nating morphine Allergy Mild ALGY-Anaphy Verified 01/15/21 18:22 laxis [facility] NPU Other Psychiatric History: Other Psychiatric History: No reported changes since last psychiatric hospitalization at this facility on 01/11/2021 per H&P completed by Dr. Noel Mental Status Exam MSE Comments: Appears stated age, appropriately groomed and dressed, calm, cooperative, sitting on her bed, good eye contact Psychomotor activity is neither increased nor decreased, no agitation Speech is occasionally slow with occasional pauses but otherwise normal rate, volume, spontaneous, clear articulation, not pressured I feel anxious, congruent affect, not labile Alert and oriented to person, place but not to time or situation Memory and concentration is poor, poor effort per interview Intellectual functioning is average at best based on vocabulary, interview Thought process, frequent pauses, delay, linear, no flight of ideas, no looseness of associations Thought content, no delusions, does not appear to be attending to any internal stimuli, no suicidal or homicidal ideation Insight and judgment appear to be fair Vitals/I&O/Wt Last Vital Signs Temp 98.3 F 01/16/21 06:00 Pulse 88 01/16/21 06:00 Resp 17 01/16/21 06:00 BP 168/103 01/16/21 06:00 Pulse Ox 98 01/16/21 06:00 Weight last 48 hrs Weight 70.307 kg Data NPU : 01/15/21 19:28 01/15/21 19:28 A&P Assessment and plan (1) Amnesia memory loss: Status: Acute (2) Depression: Status: Acute Qualifiers: Depression Type: unspecified Qualified Code(s): F32.9 - Major depressive disorder, single episode, unspecified (3) Acute anxiety: Status: Acute (4) Homeless: Status: Acute Additional A&P Information Patient presented to the emergency department with complaint of anxiety, amnesia after being found in [place], couple hours from her previous location with no recollection of how she got there. Patient continues to report depressive symptoms and had recently been discharged from this unit secondary to concerns for malingering after being kicked out of her homeless group home. Patient has past history of schizophrenia although no psychotic symptoms, no disorganization of speech, thoughts or behaviors and no hallucinations or delusions. Patient would benefit from titrating up on antidepressant targeting anxiety and depressive symptoms with continued evaluation. No clear etiology for amnesia, no history of head injury, no known exposures, positive for benzodiazepines on urine drug screen but no other illicit drug use per patient. VOLUNTARY ADMIT to inpatient psychiatry INCREASE to fluoxetine 40 mg daily targeting anxiety and depressive symptoms DISCONTINUE benzodiazepines Plan to minimize any unnecessary use of anticholinergic medications or any other medications that may affect patient's cognition while monitoring Involuntary Hold Information 96 Hour Hold: 96 Hour Involuntary Admission: No Attestations NPU Medical Necessity Statement*: Patient requires psychiatric hospitalization for observation to ensure no suicidal behaviors, medication stabilization, coordination for safe discharge Anticipate hospital stay to exceed 2 midnights Time Spent in Patient Care: Greater than 35 minutes (>than 50% of time spent in counselling and/or direct pt care on unit). Coding Level of Care Code Acute Community Engagement Specialist for Viktoria Bee Diagnoses Amnesia memory loss R41.3 Depression F32.9 Depression Type: unspecified Acute anxiety F41.9 Homeless Z59.0
[2021-01-16 14:00] VITALS: BP 135/78; PULSE 80; RESP 20; TEMP 36.6; O2SAT 95
[2021-01-16] MEDS: trazodone 50 mg Tablet PO (20:27)
[2021-01-16 21:08] VITALS: BP 136/78; PULSE 70; RESP 16; TEMP 36.7; O2SAT 95
[2021-01-17 06:00] VITALS: BP 125/72; PULSE 76; RESP 16; TEMP 36.4; O2SAT 98
[2021-01-17] MEDS: fluoxetine 20 mg Capsule 40 MG PO (08:24)
[2021-01-17] MEDS: lisinopril 20 mg Tablet PO (08:24)
[2021-01-17] MEDS: tamsulosin 0.4 mg Capsule PO (08:24)
[2021-01-17] MEDS: aspirin 81 mg EC Tablet PO (08:24)
--- NOTE | 2021-01-17 10:55 | PM.NPN ---
Subjective NPU Subjective: Interval history: Patient reports significant improvement depressive symptoms, denies any interval suicidal ideation Continues to report intermittent anxiety but reports improved. Denies any interval panic symptoms Denies any interval hallucinations, denies any delusions Continues to report difficulty with memory, states that she does not recall how she got into the hospital States that she is compliant with her medication, denies any medication side effects COLLATERAL: Patient's sister, Nelly, , patient provided written consent. Patient sister states that she had previously worked as a psychiatric nurse for an inpatient facility. She states that she subsequently started having depressive and anxiety symptoms and abusing substances and has been abusing substances for quite some time leading to an unstable living situation in which she has been homeless for a while. She reports concerns because her memory issues have led to her wandering making it difficult for her to stay whenever she has previously been placed into facilities for treatment. Mental Status Exam MSE Comments: Sitting up on her bed, calm, cooperative, good eye contact, appropriately groomed and dressed Psychomotor activity is neither increased nor decreased, no agitation Speech is normal rate and volume, spontaneous, clear articulation, not pressured I feel better, congruent affect, not labile Alert and oriented to person, place but not to time or situation Memory and concentration is poor, poor effort per interview Thought process, linear, no flight of ideas, no looseness of associations Thought content, no delusions, no hallucinations, no suicidal or homicidal ideation Insight and judgment appear to be fair Vitals/I&O/Wt Last Vital Signs Temp 97.6 F 01/17/21 06:00 Pulse 76 01/17/21 06:00 Resp 16 01/17/21 06:00 BP 125/72 01/17/21 06:00 Pulse Ox 98 01/17/21 06:00 Weight last 48 hrs Weight 74.843 kg Weight 70.307 kg Data NPU : 01/15/21 19:28 01/15/21 19:28 A&P Assessment and plan (1) Amnesia memory loss: Status: Acute (2) Acute anxiety: Status: Acute (3) Depression: Status: Acute Qualifiers: Depression Type: unspecified Qualified Code(s): F32.9 - Major depressive disorder, single episode, unspecified Additional A&P Information Continues to report intermittent depressive and anxiety symptoms with some improvement, continues to have memory issues, would likely benefit from residential substance treatment CONTINUE current medication, continue to monitor Coordinate with social media senior associate for post discharge treatment Involuntary Hold Information 96 Hour Hold: 96 Hour Involuntary Admission: No Attestations NPU Medical Necessity Statement*: Continues require psychiatric hospitalization for medication stabilization Coding Level of Care Code Acute Residential Energy Auditor for Viktoria Bee Diagnoses Amnesia memory loss R41.3 Acute anxiety F41.9 Depression F32.9 Depression Type: unspecified
[2021-01-17 13:27] VITALS: BP 106/69; PULSE 76; RESP 18; TEMP 37
[2021-01-17] MEDS: trazodone 50 mg Tablet PO (19:53)
[2021-01-17] MEDS: hyDROXYzine 25 mg Capsule 50 MG PO (19:53)
[2021-01-17 19:54] VITALS: BP 141/87; PULSE 67; RESP 16; TEMP 37.2; O2SAT 97
[2021-01-18 06:00] VITALS: BP 111/58; PULSE 50; RESP 18; TEMP 36.6; O2SAT 95
[2021-01-18] MEDS: tamsulosin 0.4 mg Capsule PO (08:09)
[2021-01-18] MEDS: fluoxetine 20 mg Capsule 40 MG PO (08:09)
[2021-01-18] MEDS: lisinopril 20 mg Tablet PO (08:09)
[2021-01-18] MEDS: aspirin 81 mg EC Tablet PO (08:09)
[2021-01-18] MEDS: hyDROXYzine 25 mg Capsule 50 MG PO (12:15)
--- NOTE | 2021-01-18 12:15 | PC.NURSE ---
PRN VISTARIL 50 MG GIVEN PO PER PT C/O STATED ANXIETY. NO OUTWARD S/S OF ANXIETY NOTED, FLAT AFFECT. PT HAS TO BE REDIRECTED AWAY FROM THE NURSES STATION SEVERAL TIMES.
[2021-01-18 14:00] VITALS: BP 117/74; PULSE 71; RESP 18; TEMP 36.9; O2SAT 97
--- NOTE | 2021-01-18 14:32 | PM.NDC ---
Diagnoses at Discharge Discharge Diagnosis (1) Amnesia memory loss: Status: Acute (2) Acute anxiety: Status: Acute (3) Depression: Status: Acute Qualifiers: Depression Type: unspecified Qualified Code(s): F32.9 - Major depressive disorder, single episode, unspecified Reason for Visit Reason for Visit: anxiety Hospital Course Hospital Course 60-year-old female presents to the emergency department with amnesia of recent events, per collateral information from family, patient has had some episodes of forgetfulness and memory issues as well as wandering behavior despite no history of dementia. Patient was also complaining of acute anxiety as well as depressive symptoms and suicidal ideation. Patient had recently been discharged from this facility with concerns of malingering given that she had been recently kicked out of a homeless fci with her significant other and immediately presented to the emergency department. Patient was reporting depressive symptoms at the time of her admission and her fluoxetine was titrated up to fluoxetine 40 mg daily with good effect and no complaints of any medication side effects. Patient reported some improvement in her cognition stating that she felt like she was thinking more clearly but continued to have some difficulty with recent memory. She reported significant improvement in her depressive symptoms and denied any suicidal ideation or thoughts about self-harm at the time of discharge and did not appear to pose an imminent threat of harm to self or others. Low to moderate risk of harm to self given no current suicidal ideation and no current depressive symptoms although patient's risk may be elevated if she continues to use illicit substances or is noncompliant with her medication medication management follow-up leading to unexpected, impulsive behavior. Risk mitigation included psychiatric hospitalization, medication stabilization, recommendation to abstain from the use of substances and alcohol as well as recommendation to be compliant with her medication and medication management follow-up. Patient was able to communicate her understanding of the need to abstain from the use of substances and alcohol as well as the need to be compliant with her medication medication management follow-up in order to further mitigate her risk of harm to self and others. Involuntary Hold Information 96 Hour Hold: 96 Hour Involuntary Admission: No Mental Status Exam MSE Comments: Sitting in the day room, appropriately groomed and dressed, calm, cooperative, good eye contact Psychomotor activity is neither increased nor decreased, no agitation Speech is normal rate and volume, spontaneous, clear articulation, not pressured Good, congruent affect, smiles appropriately at times during interview, not labile Alert and oriented to person, place but not to time or situation Memory and concentration is poor for recent memory and fair for remote memory per interview Thought process, linear, no flight of ideas, no looseness of associations Thought content, no delusions, no hallucinations, no suicidal or homicidal ideation Insight and judgment appear to be fair Discharge Data Data Completed and Pending: Completed Studies During Hospitalization Category Date Time Status CT head wo con* 7 0450 Stat Cat Scan 01/15/21 20:51 Completed Vitals: Last Vital Signs Temp 98.4 F 01/18/21 14:00 Pulse 71 01/18/21 14:00 Resp 18 01/18/21 14:00 BP 117/74 01/18/21 14:00 Pulse Ox 97 01/18/21 14:00 Discharge Plan Discharge Patient Disposition: Home Condition: Stable Prescriptions: New fluoxetine 20 mg Capsule 40 mg PO DAILY Qty: 30 RF: 0 Continued aspirin [Aspir-81] 81 mg Tablet,Delayed Release (Dr/Ec) 81 mg PO DAILY RF: 0 lisinopril 20 mg Tablet 20 mg PO DAILY RF: 0 tamsulosin 0.4 mg Capsule 0.4 mg PO DAILY RF: 0 No Action fluoxetine 20 mg Capsule 20 mg PO DAILY 30 Days Qty: 30 RF: 1 Discharge Orders: Discharge Order (Routine); Ordered 01/18/21 Ordered By: Shiloh Moreau Discharge Diet: Regular Discharge Activity: Resume usual activity Patient Instructions: Fluoxetine (By mouth) Discharge Attestations NPU Time Spent in Discharge Care*: greater than 30 min Status at Discharge: Cognitive status at discharge: mildly impaired cognition, Behavioral status at discharge: cooperative, Functional status at discharge: independent ambulation Overall status at discharge: patient is back to baseline Coding Level of Care Code Acute Hvac Maintenance Technician for Viktoria Bee Diagnoses Amnesia memory loss R41.3 Acute anxiety F41.9 Depression F32.9 Depression Type: unspecified
[2021-01-18 14:36] VITALS: BP 117/74; PULSE 71; RESP 18; TEMP 36.9; O2SAT 97
== END 2021-01-18 18:06 | disposition home or self-care (01) | DRG 880 ==
LOC: ER 18:46 → NP 21:27
PROVIDERS: Admitting Provider Psychiatry & Neurology Psychiatry; Emergency Provider Emergency Medicine; Visit Provider Psychiatry & Neurology Psychiatry
DX: F41.9 Anxiety disorder, unspecified (principal); R45.851 Suicidal ideations; R41.3 Other amnesia; F32.9 Major depressive disorder, single episode, unspecified; Z79.82 Long term (current) use of aspirin; Z59.0 Homelessness; I10 Essential (primary) hypertension
CPT/HCPCS: 70450; 80053; 80306; 80307; 81003; 85025; 96372; 99285; G0378; J1630; J3486

== ENCOUNTER 2021-01-29 12:34 | Emergency (ER) | payer MEDICARE, SELFPAY ==
[2021-01-29] VITALS (7 sets, daily range): BP systolic 96–195; BP diastolic 85–147; PULSE 69–87; RESP 16–20; TEMP 37; O2SAT 97–100; BMI 28.7
--- NOTE | 2021-01-29 12:43 | XR_ITS ---
WS: [id number] Exam: XR chest 1V portable [id number] Date/Time of Exam: 01/29/2021 12:50 PM Reason For Exam: neuro symptoms Comparison 11/24/2020. The lungs are clear and fully inflated. Normal cardiomediastinal structures and bony elements. Athero sclerotic plaquing of the aortic arch. XR/XR chest 1V portable [id number] IMPRESSION: 1. No acute cardiopulmonary finding.
--- NOTE | 2021-01-29 12:46 | ECG_ITS ---
[facility] Test Date: 2021-01-29 Pat Name: Pippa Orantes Department: Room: Gender: Female Theatrical Dresser: : 1960 Requested By: Rosa Aguiar I Order Number: [id number] Gracy MD: Hannah Bell M.D. Measurements Intervals [place] Rate: 70 P: 246 CT: 139 QRS: 258 QRSD: 81 T: 239 QT: 382 QTc: 412 Interpretive Statements JUNCTIONAL RHYTHM RIGHT AXIS DEVIATION [QRS AXIS > 100] ST DEVIATION AND MARKED T-WAVE ABNORMALITY, CONSIDER INFERIOR ISCHEMIA [-0.5+ mV T WAVE IN II/aVF] Compared to ECG 11/24/2020 14:14:27 Junctional rhythm now present Right-axis deviation now present T-wave abnormality now present Possible ischemia now present Sinus bradycardia no longer present Electronically Signed On 01-29-2021 18:11:10 CDT by Hannah Bell M.D. [email or web address]
--- NOTE | 2021-01-29 12:46 | CT_ITS ---
WS: [id number] CT HEAD NONCONTRAST HISTORY: Symptoms of Acute Stroke TECHNIQUE: Contiguous axial imaging performed through the brain in 2.5 mm imaging. Bone and soft tiss ue windows. Sagittal and coronal reformats reviewed. All CT scans at [facility] use at ast one of these dose optimization techniques: automated exposure control; mA and/or kV adjustment pe r patient size (includes targeted exams where dose is matched to clinical indication); or iterative r econstruction. DLP: 701.89 mGy.cm COMPARISON: 01/15/2021 No acute intracranial hemorrhage, midline shift or mass effect. No significant atrophy. Mild to moderate chronic microvascular ischemic changes in the white matter. Ventricles: Normal size with no hydrocephalus. Paranasal sinuses: As visualized are clear. Mastoid air cells: Mild coalescence of mastoid air cells and sclerosis. Calvarium and scalp: Skull is intact with no soft tissue edema or swelling. CT/CT head wo con* [id number] IMPRESSION: 1. No acute intracranial hemorrhage or edema. 2. Mild to moderate chronic microvascular ischemic disease.
[2021-01-29 13:18] LABS: Basophils # 0.1 10^3/uL (0.0-0.1); Basophils % 0.7 %; Eosinophils % 0.4 %; Hematocrit 50.7 % (37.0-47.0); Hemoglobin 16.9 g/dL (11.5-15.3); Lymphocytes # 1.7 10^3/uL (0.8-4.8); Lymphocytes % 22.1 %; Mean Corpuscular HGB Conc 33.3 g/dL (30.0-36.0); Mean Corpuscular Hemoglobin 31.5 pg (28.0-34.0); Mean Corpuscular Volume 94.6 fL (81-99); Mean Platelet Volume 11.1 fL (7.4-10.4); Monocytes # 0.4 10^3/uL (0.2-0.9); Monocytes % 4.9 %; Neutrophils # 5.39 10^3/uL (1.8-7.7); Neutrophils % 71.6 %; Nucleated Red Blood Cells % 0 %; Platelet Count 344 10^3/cmm (130-400); Red Blood Count 5.36 10^6/uL (4.1-5.3); Red Cell Distribution Width 12.2 % (12.1-15.1); White Blood Count 7.5 10^3/uL (4.0-10.0)
[2021-01-29 13:35] LABS: INR 0.94 (0.8-1.2)
[2021-01-29 13:36] LABS: Partial Thromboplastin Time 24.4 SECONDS (23.9-36.7)
[2021-01-29 13:42] LABS: Alanine Aminotransferase 16 U/L (0-33); Albumin Level 4.4 g/dL (3.5-5.2); Alkaline Phosphatase 82 IU/L (35-105); Anion Gap 14.9 (5-19); Aspartate Amino Transferase 16 U/L (0-32); Blood Urea Nitrogen 10 mg/dL (8-23); Calcium 9.8 mg/dL (8.5-10.5); Carbon Dioxide 28 mmol/L (22-29); Chloride 101 mmol/L (98-107); Globulin 3.1 g/dL (1.3-4.6); Glomerular Filtration Rate 73.2 mL/min (90-130); Glucose 103 mg/dL (65-115); Osmolality Calculated 289 mOsm/kg (285-295); Potassium 3.9 mmol/L (3.5-5.1); Sodium 140 mmol/L (136-145); Total Bilirubin 0.4 mg/dL (0.15-1.2); Total Protein 7.5 g/dL (6.6-8.7)
[2021-01-29 13:50] LABS: Glucose Point of Care 100 mg/dL (70-110)
--- NOTE | 2021-01-29 14:54 | W.ED.AMS ---
HPI - Altered Mental Status General: Chief Complaint: Altered Mental Status Stated Complaint: CONFUSION Source: patient and EMS Mode of arrival: EMS Limitations: no limitations History of Present Illness: HPI narrative: The patient was in her usual state of health until a few minutes ago when she developed some tingling on the top of her scalp. This occurred while she was taking a walk. She also has intermittent confusion per her spouse and he thinks that she may be developing some dementia as this has been ongoing for some time . Patient denies any headache, dizziness, chest pain, shortness of breath, fever. She states that the only concern she has now is the tingling on the top of her scalp. She states that she has a prior history of a CVA but could not tell me when. MD complaint: confusion Consistency of symptoms: Waxing and Waning Associated symptoms: Deny auditory hallucinations, visual hallucinations, delusions, depression, homicidal ideation, racing thoughts or suicidal ideation Review of Systems General: Reports: 10 or more systems reviewed and unremarkable except in HPI and below Psych: Denies: depression, visual hallucinations, auditory hallucinations, suicidal ideation or homicidal ideation Physical Exam Const: COMMON NORMALS: no acute distress, average body habitus, patient oriented x3, no limitations, healthy appearing, alert and well nourished HENMT: COMMON NORMALS: normocephalic, atraumatic and moist oral mucous membranes HEAD & SCALP: normocephalic and atraumatic OTHER: Scalp appears grossly normal. No tenderness or paresthesia noted on examination Eye: COMMON NORMALS: Equal, round and reactive pupils present, EOMs intact bilaterally, conjunctivae normal and no scleral icterus CONJUNCTIVA: Yes conjunctivae normal PUPIL: Yes Equal, round and reactive pupils present Neck/C-Spine: COMMON NORMALS: full ROM, supple, no meningeal signs, no JVD and No carotid bruits Resp: COMMON NORMALS: normal respiratory effort, No retractions, No use of accessory muscles, clear to auscultation bilaterally and percussion normal AUSCULTATION: clear to auscultation bilaterally PERCUSSION: percussion normal Cardio: COMMON NORMALS: no JVD, regular rate, regular rhythm, S1 normal heart sound present, S2 normal heart sound present, No gallops present (Cardio), No clicks present (Cardio), No murmurs present (Cardio), No rub (Cardio) and Peripheral pulses 2+ throughout RATE: regular rate RHYTHM: regular rhythm HEART SOUNDS: S1 normal heart sound present and S2 normal heart sound present PERIPHERAL PULSES: Peripheral pulses 2+ throughout GI: COMMON NORMALS: Normal to inspection, nondistended, normoactive bowel sounds present, Soft to palpation, non-tender, No hepatosplenomegaly present, no masses and no bruits PALPATION: Yes Soft to palpation and Yes No hepatosplenomegaly present Extremity: COMMON NORMALS: normal to inspection, full ROM, capillary refill normal, no calf tenderness and no pedal edema Neuro: COMMON NORMALS: patient oriented x3 SENSORIUM/ORIENTATION: Yes alert MENINGEAL SIGNS: Yes no meningeal signs OTHER: NIHSS is 0 Psych: THOUGHT CONTENT: No delusions Skin: COMMON NORMALS: no rashes or lesions noted, no wounds, turgor normal, no jaundice, no petechiae and no mottling GENERAL SKIN EXAM: no rashes or lesions noted and turgor normal Course Reevaluation(s): Reevaluation #1: Geremias her lab and imaging findings with her. Unremarkable and no signs of acute illness. We will discharge her home with no new orders. I spoke to her significant other on the phone and he explained that she has had confusion and forgetfulness for several months. She will follow-up with her primary care provider. Time: 15:50 Vital Signs: Vital signs: Vital Signs Temperature 98.6 F 01/29/21 12:39 Pulse Rate 84 01/29/21 16:15 Respiratory Rate 16 01/29/21 16:15 Blood Pressure 170/94 01/29/21 16:15 Pulse Oximetry 97 01/29/21 16:15 MDM - Altered Mental Status MDM Narrative: Medical decision making narrative: 60-year-old female patient who presents to the emergency department with nonspecific complaints of paresthesia on her scalp. Evaluation in the emergency department is unremarkable and she is discharged home with no new orders. I suspect she also has early dementia and she will follow-up with her primary care provider for further work-up. Medical Records: Attestation: I reviewed the patient's medical records. Lab Data: Attestation: I reviewed the patient's lab results. Labs: Lab Results 01/29/21 01/29/21 01/29/21 Range/Units 13:11 13:11 13:11 WBC 7.5 (4.0-10.0) 10^3/ uL RBC 5.36 H (4.1-5.3) 10^6/u L Hgb 16.9 H (11.5-15.3) g/dL Hct 50.7 H (37.0-47.0) % MCV 94.6 (81-99) fL MCH 31.5 (28.0-34.0) pg MCHC 33.3 (30.0-36.0) g/dL RDW 12.2 (12.1-15.1) % Plt Count 344 (130-400) 10^3/c mm MPV 11.1 H (7.4-10.4) fL Neut % (Auto) 71.6 % Lymph % (Auto) 22.1 % [place] % (Auto) 4.9 % Eos % (Auto) 0.4 % Baso % (Auto) 0.7 % Neut # (Auto) 5.39 (1.8-7.7) 10^3/u L Lymph # (Auto) 1.7 (0.8-4.8) 10^3/u L [place] # (Auto) 0.4 (0.2-0.9) 10^3/u L Eos # (Auto) 0.0 (0.0-0.8) 10^3/u L Baso # (Auto) 0.1 (0.0-0.1) 10^3/u L Nucleated RBC % (a uto) 0 % Nucleated RBCs # 0.0 /100WBC PT 12.90 (12.1-14.9) SECO NDS INR 0.94 (0.8-1.2) APTT 24.4 (23.9-36.7) SECO NDS Sodium 140 (136-145) mmol/L Potassium 3.9 (3.5-5.1) mmol/L Chloride 101 (98-107) mmol/L Carbon Dioxide 28 (22-29) mmol/L Anion Gap 14.9 (5-19) BUN 10 (8-23) mg/dL Creatinine 0.8 (0.5-0.9) mg/dL GFR Calculation 73.2 L (90-130) mL/min Glucose 103 (65-115) mg/dL POC Glucose (70-110) mg/dL Calculated Osmolal ity 289 (285-295) mOsm/k g Calcium 9.8 (8.5-10.5) mg/dL Total Bilirubin 0.4 (0.15-1.2) mg/dL AST 16 (0-32) U/L ALT 16 (0-33) U/L Alkaline Phosphata se 82 (35-105) IU/L Total Protein 7.5 (6.6-8.7) g/dL Albumin 4.4 (3.5-5.2) g/dL Globulin 3.1 (1.3-4.6) g/dL Urine Color (Yellow) Urine Appearance (CLEAR) Urine pH (5-7) Ur Specific Gravit y (1.005-1.030) Urine Protein (Negative) Urine Glucose (UA) (Normal) Urine Ketones (Negative) Urine Blood (Negative) Urine Nitrate (Negative) Urine Bilirubin (Negative) Prot Sulfosalicyli c Acd (Negative) Urine Urobilinogen (Negative) mg/dL Ur Leukocyte Sonam ase (Negative) Urine RBC (0-2) /hpf Urine WBC (0-5) /hpf Ur Squamous Epith Cells (0-5) /hpf Amorphous Sediment /hpf Urine Bacteria (NONE) /hpf Urine Opiates Scre en (Negative) ng/mL Ur Barbiturates Sc reen (Negative) ng/mL Ur Phencyclidine S crn (Negative) ng/mL Ur Amphetamines Sc reen (Negative) ng/mL U Benzodiazepines Scrn (Negative) ng/mL Urine Cocaine Scre en (Negative) ng/mL U Marijuana (THC) Screen (Negative) ng/mL 01/29/21 01/29/21 01/29/21 Range/Units 13:47 14:28 14:28 WBC (4.0-10.0) 10^3/ uL RBC (4.1-5.3) 10^6/u L Hgb (11.5-15.3) g/dL Hct (37.0-47.0) % MCV (81-99) fL MCH (28.0-34.0) pg MCHC (30.0-36.0) g/dL RDW (12.1-15.1) % Plt Count (130-400) 10^3/c mm MPV (7.4-10.4) fL Neut % (Auto) % Lymph % (Auto) % [place] % (Auto) % Eos % (Auto) % Baso % (Auto) % Neut # (Auto) (1.8-7.7) 10^3/u L Lymph # (Auto) (0.8-4.8) 10^3/u L [place] # (Auto) (0.2-0.9) 10^3/u L Eos # (Auto) (0.0-0.8) 10^3/u L Baso # (Auto) (0.0-0.1) 10^3/u L Nucleated RBC % (a uto) % Nucleated RBCs # /100WBC PT (12.1-14.9) SECO NDS INR (0.8-1.2) APTT (23.9-36.7) SECO NDS Sodium (136-145) mmol/L Potassium (3.5-5.1) mmol/L Chloride (98-107) mmol/L Carbon Dioxide (22-29) mmol/L Anion Gap (5-19) BUN (8-23) mg/dL Creatinine (0.5-0.9) mg/dL GFR Calculation (90-130) mL/min Glucose (65-115) mg/dL POC Glucose 100 (70-110) mg/dL Calculated Osmolal ity (285-295) mOsm/k g Calcium (8.5-10.5) mg/dL Total Bilirubin (0.15-1.2) mg/dL AST (0-32) U/L ALT (0-33) U/L Alkaline Phosphata se (35-105) IU/L Total Protein (6.6-8.7) g/dL Albumin (3.5-5.2) g/dL Globulin (1.3-4.6) g/dL Urine Color Yellow (Yellow) Urine Appearance Cloudy (CLEAR) Urine pH 8 H (5-7) Ur Specific Gravit y 1.015 (1.005-1.030) Urine Protein Neg (Negative) Urine Glucose (UA) Norm (Normal) Urine Ketones 1+ H (Negative) Urine Blood Neg (Negative) Urine Nitrate Negative (Negative) Urine Bilirubin Neg (Negative) Prot Sulfosalicyli c Acd Negative (Negative) Urine Urobilinogen Norm (Negative) mg/dL Ur Leukocyte Sonam ase Negative (Negative) Urine RBC None (0-2) /hpf Urine WBC 0-4 H (0-5) /hpf Ur Squamous Epith Cells 0-4 H (0-5) /hpf Amorphous Sediment 2+ /hpf Urine Bacteria 2+ H (NONE) /hpf Urine Opiates Scre en Negative (Negative) ng/mL Ur Barbiturates Sc reen Negative (Negative) ng/mL Ur Phencyclidine S crn Negative (Negative) ng/mL Ur Amphetamines Sc reen Negative (Negative) ng/mL U Benzodiazepines Scrn Negative (Negative) ng/mL Urine Cocaine Scre en Negative (Negative) ng/mL U Marijuana (THC) Screen Negative (Negative) ng/mL Imaging Data^: Other CT: Attestation: I personally reviewed and interpreted this imaging study as follows: Radiologist's impression: [address] [address] [address] Scan Report Signed Patient: Pippa Orantes #: [id number] : 1960cct#:[id number] Age/Sex: 60 / FADM Date: 01/29/21 Loc: ERRoom/Bed: Attending Dr: Ordering Provider/Ordering MD: Rosa Aguiar MD, [facility] Date of Service: 01/29/21 Procedure(s): CT angio headazck* [id number] Accession Number(s): [id number] Report Number: [id number] WS: [id number] CT ANGIOGRAM CEREBRAL AND CAROTID ARTERIES HISTORY: stroke-like symptoms. TECHNIQUE: CT angiogram is performed of the carotid and cerebral arteries. During arterial injection imaging is obtained from the skull vertex to the aortic arch in 1.25 mm imaging. Coronal and sagittal reformats are submitted. Additional multi planar reformats of the carotid and cerebral arteries are submitted, MIP imaging also reviewed. NASCET criteria utilized. All CT scans at [facility] use at least one of these dose optimization techniques: automated exposure control; mA and/or kV adjustment per patient size (includes targeted exams where dose is matched to clinical indication); or iterative reconstruction. CONTRAST: Omnipaque 350; 95 mL IV. DLP: 1863.44 mGy.cm COMPARISON: None available. Carotid Angiogram: Right carotid: Common carotid artery: Arises normally from the innominate artery. No significant plaque or stenosis. Internal carotid artery: Calcified plaque at the bifurcation without significant stenosis. External carotid artery: Patent. Left carotid: Common carotid artery: Arises normally from the aorta. No significant plaque or stenosis. Internal carotid artery: No plaque or stenosis. External carotid artery: Patent. Right vertebral artery: Unremarkable. Left vertebral artery: Unremarkable. Arises normally from the subclavian artery. Subclavian arteries: No stenosis or significant abnormality. Upper thorax: Normal. Thyroid gland: Normal. Osseous structures: Unremarkable. CEREBRAL ANGIOGRAM: Intracranial vertebral arteries: Normal with no significant atherosclerosis. Basilar artery: No significant stenosis or occlusion. No aneurysm. Intracranial Internal carotid arteries: Demonstrates no significant stenosis or plaque. Middle cerebral arteries: Normal. Anterior cerebral arteries and ACOM: Normal. Posterior cerebral arteries and PCOM's: Normal. Dural venous sinuses are normally enhancing. Mastoid air cells: Normal. Paranasal sinuses: Normal. Calvarium: Normal. CT/CT angio headneck* [id number] IMPRESSION: 1. No significant carotid artery stenosis. Small noncalcified plaque at the RIGHT ICA. 2. Unremarkable [place]. Dictated By:Alfreda Calero DO Signed By:Alfreda Calero DOSigned Date/Time:01/29/21 1532 DD/ 1526 CT Head: Attestation: I personally reviewed and interpreted this imaging study as follows: Radiologist's impression: [address] [address] [address] Scan Report Signed Patient: Pippa Orantes AUnnayeli #: [id number] : 1Acct#:[id number] Age/Sex: 60 / FADM Date: 01/29/21 Loc: ERRoom/Bed: Attending Dr: Ordering Provider/Ordering MD: Rosa Aguiar MD, [facility] Date of Service: 01/29/21 Procedure(s): CT head wo con* [id number] Accession Number(s): [id number] Report Number: [id number] WS: [id number] CT HEAD NONCONTRAST HISTORY: Symptoms of Acute Stroke TECHNIQUE: Contiguous axial imaging performed through the brain in 2.5 mm imaging. Bone and soft tissue windows. Sagittal and coronal reformats reviewed. All CT scans at [facility] use at least one of these dose optimization techniques: automated exposure control; mA and/or kV adjustment per patient size (includes targeted exams where dose is matched to clinical indication); or iterative reconstruction. DLP: 701.89 mGy.cm COMPARISON: 01/15/2021 No acute intracranial hemorrhage, midline shift or mass effect. No significant atrophy. Mild to moderate chronic microvascular ischemic changes in the white matter. Ventricles: Normal size with no hydrocephalus. Paranasal sinuses: As visualized are clear. Mastoid air cells: Mild coalescence of mastoid air cells and sclerosis. Calvarium and scalp: Skull is intact with no soft tissue edema or swelling. CT/CT head wo con* [id number] IMPRESSION: 1. No acute intracranial hemorrhage or edema. 2. Mild to moderate chronic microvascular ischemic disease. Dictated By:Alfreda Calero DO Signed By:Alfreda Calero DOSigned Date/Time:01/29/21 1343 DD/ 1341 CXR: Attestation: I personally reviewed and interpreted this imaging study as follows: Radiologist's impression: [address] [address] XRay Report Signed Patient: Pippa Orantes #: [id number] : 1Acct#:[id number] Age/Sex: 60 / FADM Date: 01/29/21 Loc: ERRoom/Bed: Attending Dr: Ordering Provider/Ordering MD: Rosa Aguiar MD, [facility] Date of Service: 01/29/21 Procedure(s): XR chest 1V portable [id number] Accession Number(s): [id number] Report Number: [id number] WS: [id number] Exam: XR chest 1V portable [id number] Date/Time of Exam: 01/29/2021 12:50 PM Reason For Exam: neuro symptoms Comparison 11/24/2020. The lungs are clear and fully inflated. Normal cardiomediastinal structures and bony elements. Atherosclerotic plaquing of the aortic arch. XR/XR chest 1V portable [id number] IMPRESSION: 1. No acute cardiopulmonary finding. Dictated By:Luis Enrique Cortes DO Signed By:Francisco Siddiqi Date/Time:01/29/21 1257 DD/ 1256 EKG Data^: EKG 1: Attestation: I personally reviewed and interpreted this EKG as follows: EKG interpretation date: 01/29/21 EKG interpretation time: 12:47 Prior EKG tracings: not available for review Interpretation: Sinus rhythm. Heart rate 70 bpm. T wave inversion in leads I to III and lead aVF Discharge Plan Discharge Patient Disposition: Home Clinical Impression: Paresthesia, Chronic confusion Condition: Stable Prescriptions: Continued aspirin 81 mg Tablet,Delayed Release (Dr/Ec) 81 mg PO DAILY@07 RF: 0 lisinopril 20 mg Tablet 20 mg PO DAILY RF: 0 tamsulosin 0.4 mg Capsule 0.4 mg PO DAILY RF: 0 fluoxetine 20 mg capsule 40 mg PO DAILY@07 RF: 0 Discharge Orders: Discharge ED (Routine); Ordered 01/29/21 Ordered By: Rosa Aguiar Discharge Diet: Usual diet Discharge Activity: Increase activity as tolerated Patient Instructions: Paresthesia (ED) Activity Restrictions/Additional Instructions: Return for any new or worsening symptoms. Follow-up with your primary care provider within 3 days. Take your medications as prescribed. Coding Level of Care Code ED Theoretical Physicist for Chg Fwd Exam Comprehensive
[2021-01-29 14:55] LABS: Amphetamines Screen Urine Negative (Negative); Barbiturates Screen Urine Negative (Negative); Benzodiazepines Screen Urine Negative (Negative); Cocaine Screen Urine Negative (Negative); Opiate Screen Urine Negative (Negative); PCP Screen Urine Negative (Negative); THC Screen Urine Negative (Negative)
[2021-01-29 14:58] LABS: Add Urine Microscopic? YES; Bilirubin Urine Neg (Negative); Blood Urine Neg (Negative); Glucose Urine UA Norm (Normal); Ketones Urine 1+ (Negative); Leukocyte Esterase Urine Negative (Negative); Nitrate Urine Negative (Negative); Protein Urine Neg (Negative); Specific Gravity, Urine 1.015 (1.005-1.030); Sulfosalicylic Acid Urine Negative (Negative); Urine Appearance Cloudy (CLEAR); Urine Color Yellow (Yellow); Urobilinogen Urine Norm (Negative); pH Urine 8 (5-7)
--- NOTE | 2021-01-29 15:03 | CT_ITS ---
WS: [id number] CT ANGIOGRAM CEREBRAL AND CAROTID ARTERIES HISTORY: stroke-like symptoms. TECHNIQUE: CT angiogram is performed of the carotid and cerebral arteries. During arterial injection imaging is obtained from the skull vertex to the aortic arch in 1.25 mm imaging. Coronal and sagittal reformats are submitted. Additional multi planar reformats of the carotid and cerebral arteries are submitted, MIP imaging also reviewed. NASCET criteria utilized. All CT scans at [facility] use at least one of these dose optimization techniques: automated exposure control; mA and/or kV ad justment per patient size (includes targeted exams where dose is matched to clinical indication); or iterative reconstruction. CONTRAST: Omnipaque 350; 95 mL IV. DLP: 1863.44 mGy.cm COMPARISON: None available. Carotid Angiogram: Right carotid: Common carotid artery: Arises normally from the innominate artery. No significant plaque or stenosis. Internal carotid artery: Calcified plaque at the bifurcation without significant stenosis. External carotid artery: Patent. Left carotid: Common carotid artery: Arises normally from the aorta. No significant plaque or stenosis. Internal carotid artery: No plaque or stenosis. External carotid artery: Patent. Right vertebral artery: Unremarkable. Left vertebral artery: Unremarkable. Arises normally from the subclavian artery. Subclavian arteries: No stenosis or significant abnormality. Upper thorax: Normal. Thyroid gland: Normal. Osseous structures: Unremarkable. CEREBRAL ANGIOGRAM: Intracranial vertebral arteries: Normal with no significant atherosclerosis. Basilar artery: No significant stenosis or occlusion. No aneurysm. Intracranial Internal carotid arteries: Demonstrates no significant stenosis or plaque. Middle cerebral arteries: Normal. Anterior cerebral arteries and ACOM: Normal. Posterior cerebral arteries and PCOM's: Normal. Dural venous sinuses are normally enhancing. Mastoid air cells: Normal. Paranasal sinuses: Normal. Calvarium: Normal. CT/CT angio headneck* [id number] IMPRESSION: 1. No significant carotid artery stenosis. Small noncalcified plaque at the [place] G[place] ICA. 2. Unremarkable [place].
[2021-01-29] MEDS: iohexol 350 mg/mL 100 mL Btl IV (15:19)
[2021-01-29 15:39] LABS: Amorphous Sediment Urine 2+ /hpf; Bacteria Urine 2+ /hpf; Squamous Epithelial Cell Urine 0-4 /hpf (0-5)
[2021-01-29 15:40] LABS: Add Urine Culture? No; WBC Urine 0-4 /hpf (0-5)
[2021-01-29] MEDS: labetalol 5 mg/mL SDV 20mL 10 MG IVP (15:51)
== END 2021-01-29 16:24 | disposition home or self-care (01) ==
PROVIDERS: Emergency Provider Family Medicine
DX: R41.0 Disorientation, unspecified (principal); R20.2 Paresthesia of skin; Z79.82 Long term (current) use of aspirin; I70.0 Atherosclerosis of aorta
CPT/HCPCS: 36416; 70450; 70496; 70498; 71045; 80053; 80306; 81001; 82962; 85025; 85610; 85730; 93005; 96374; 99284; J3490; Q9967